=== PATIENT | female | born 1990 | race Two or more races ===

== ENCOUNTER 2020-04-26 17:37 | Inpatient (IN) | payer BC, OTHER ==
[~2020-04-26] VITALS: Ht 152.4 cm; Wt 70.8 kg
[2020-04-26] MEDS ORDERED: SODIUM CHLORIDE 0.9% 1,000 ML IV ONE (20:15)
[2020-04-26] MEDS ORDERED: cefTRIAXone 1GM/50ML D5W 50 ML IV ONE (20:15)
[2020-04-26 21:44] LABS: Albumin 3.9 g/dL (3.4-5.0); BUN/Creatinine Ratio 9.7; Calcium 8.9 mg/dL (8.5-10.1); Potassium 3.7 mmol/L (3.5-5.1)
[2020-04-26 21:48] LABS: Eosinophils # (auto) 0.1 10 ^3/uL (0-0.8); Eosinophils % (auto) 0.5 % (0.0-7.0); Lymphocytes # (auto) 2.2 10 ^3/uL (0.4-5.4); Monocytes # (auto) 0.6 10 ^3/uL (0-1.3); Neutrophils # (auto) 9.8 10 ^3/uL (1.6-8.6); White Blood Cell 12.7 10^3/uL (4.4-10.8)
[2020-04-26 21:49] LABS: Basophils # (auto) 0 10 ^3/uL (0-0.2); Basophils % (auto) 0.4 % (0.0-2.0); Hematocrit 41.5 % (36.0-46.0); Hemoglobin 13.7 g/dL (12.2-16.2); Mean Corpuscular Hemoglobin 28.4 pg (28.0-32.0); Mean Corpuscular Hgb Conc. 33.1 g/dL (32.0-36.0); Mean Corpuscular Volume 85.7 fL (80.0-100.0); Monocytes % (auto) 4.7 % (0.0-12.0); Neutrophils % (auto) 77.4 % (37.0-80.0); Platelet Count (auto) 455 10^3/uL (140-450); Red Blood Cells 4.84 10^6/uL (4.0-5.20); Red Cell Distribution Width 12.5 % (11.8-14.3)
[2020-04-26 21:56] LABS: CRP High Sensitivity 3.67 mg/dL (< 0.3)
[2020-04-26] MEDS ORDERED: KETOROLAC TROMETH 30 MG/ML 1ML VIAL IV ONE (22:00)
[2020-04-26 22:10] LABS: Bilirubin, Total 0.3 mg/dL (0.2-1.0); Total Protein 8.8 g/dL (6.4-8.2)
[2020-04-26] MEDS: D5W/SOD CHLO 0.9% 1,000 ML IV SCH (23:00)
[2020-04-26] MEDS ORDERED: CLINDAMYCIN 600MG IV 50 ML IV ONE (23:00)
[2020-04-26] MEDS ORDERED: ONDANSETRON HCL 4 MG/2 ML VIAL IV PRN (23:00)
[2020-04-27 03:37] VITALS: BP 104/67
--- NOTE | 2020-04-27 03:37 | NUR ---
MS admit from ER NICHO GILES admitted to tele/MS after SBAR received. Patient oriented to MICHAEL MAHER, RN primary RN, unit, room, bed, and unit policies regarding patient care and visiting hours. Patient weighed by bedscale and encouraged to call if they need something. All questions and concerns addressed, patient verbalized understanding.Patient states no pain at thid time. Will continue to monitor q1hr and PRN.
[2020-04-27] MEDS: CLINDAMYCIN 600MG IV 50 ML IV SCH ×3 (05:21→22:40)
--- NOTE | 2020-04-27 07:31 | NUR ---
Closing note Endorsed care to day shift RN. no sob or distress noted.
[2020-04-27 08:22] LABS: Basophils # (auto) 0.1 10 ^3/uL (0-0.2); Basophils % (auto) 0.5 % (0.0-2.0); Eosinophils # (auto) 0.1 10 ^3/uL (0-0.8); Eosinophils % (auto) 0.9 % (0.0-7.0); Hemoglobin 12.9 g/dL (12.2-16.2); Lymphocytes # (auto) 1.8 10 ^3/uL (0.4-5.4); Lymphocytes % (auto) 16.9 % (10.0-50.0); Mean Corpuscular Hemoglobin 29.5 pg (28.0-32.0); Mean Corpuscular Hgb Conc. 34.1 g/dL (32.0-36.0); Mean Corpuscular Volume 86.4 fL (80.0-100.0); Monocytes # (auto) 0.6 10 ^3/uL (0-1.3); Monocytes % (auto) 5.7 % (0.0-12.0); Neutrophils # (auto) 8.1 10 ^3/uL (1.6-8.6); Nucleated Red Blood Cells % 0.1 %; Platelet Count (auto) 411 10^3/uL (140-450); Red Blood Cells 4.39 10^6/uL (4.0-5.20); Red Cell Distribution Width 12.4 % (11.8-14.3); White Blood Cell 10.6 10^3/uL (4.4-10.8)
[2020-04-27] MEDS: cefTRIAXone 1GM/50ML D5W 50 ML IV SCH (08:41)
[2020-04-27] MEDS: MORPHINE SULFATE 4 MG/ML SYR/VIAL IV PRN ×3 (08:41→18:10)
[2020-04-27 08:43] LABS: Calcium 8.9 mg/dL (8.5-10.1)
[2020-04-27 09:00] VITALS: BP 100/61
[2020-04-27] MEDS ORDERED: HYDROcodone-ACET 5/325MG TAB PO PRN (10:30)
--- NOTE | 2020-04-27 10:30 | NUR ---
DR CUTLER AT BEDSIDE. NEW ORDERS RECEIVED.
[2020-04-27] MEDS ORDERED: ceFAZolin 1GM VL ONE (10:47)
[2020-04-27] MEDS ORDERED: LIDOCAINE W/ EPINEPHRINE 1% 20ML VIAL ONE (10:48)
[2020-04-27] MEDS ORDERED: BUPIVACAINE 0.25% INJ 50ML VIAL ONE (10:48)
[2020-04-27] MEDS ORDERED: KETAMINE HCL 10 ML ONE (11:00)
[2020-04-27] MEDS ORDERED: SODIUM CHLORIDE LOCK 10 ML ONE (11:00)
[2020-04-27] MEDS ORDERED: fentaNYL CITRATE 100 MCG/2 ML VL ONE (11:00)
[2020-04-27] MEDS ORDERED: MIDAZOLAM HCL 1MG/1ML-2 ML VIAL ONE (11:00)
[2020-04-27] MEDS ORDERED: ONDANSETRON HCL 4 MG/2 ML VIAL ONE (11:00)
[2020-04-27] MEDS ORDERED: PROPOFOL 10 MG/ML 20 ML IV ONE (11:00)
--- NOTE | 2020-04-27 11:21 | NUR ---
PATIENT DOWN TO OR. PATIENT SHOWS NO SIGNS OF DISTRESS AT THIS TIME.
[2020-04-27] MEDS: D5W/SOD CHLO 0.9% 1,000 ML IV SCH (13:27)
--- NOTE | 2020-04-27 20:30 | NUR ---
open note assumed care of pt upon entering room pt awake and alert. pt on room air no distress noted or expressed. pt denies pain. pt oriented to this nurse and updated on plan of care. pt has dressing to right chest, clean dry intact. pt reports she has urinated since being back from procedure. pt bowel sounds active. bed locked, low and 2x rails up. call light in reach, this nurse to round q1hr and prn. pt encouraged to call as needed.
[2020-04-28 01:08] VITALS: BP 85/51
[2020-04-28] MEDS: D5W/SOD CHLO 0.9% 1,000 ML IV SCH ×2 (01:40→15:00)
[2020-04-28 05:46] VITALS: BP 95/55
[2020-04-28] MEDS: CLINDAMYCIN 600MG IV 50 ML IV SCH ×3 (06:55→22:42)
--- NOTE | 2020-04-28 07:00 | NUR ---
OPENING SHIFT NOTE RECEIVED REPORT ON THE PATIENT. AWAKE LYING IN BED. PATIENT SHOWS NO SIGNS OF DISTRESS AT THIS TIME. DISCUSSED THE PLAN OF CARE WITH THE PATIENT. BED IN LOWEST POSITION, SIDE RAILS UP X2, AND THE CALL LIGHT IS WITHIN REACH.
[2020-04-28 07:48] LABS: Basophils # (auto) 0.1 10 ^3/uL (0-0.2); Basophils % (auto) 0.6 % (0.0-2.0); Eosinophils # (auto) 0.1 10 ^3/uL (0-0.8); Eosinophils % (auto) 0.9 % (0.0-7.0); Hematocrit 36.8 % (36.0-46.0); Lymphocytes # (auto) 1.9 10 ^3/uL (0.4-5.4); Lymphocytes % (auto) 18.4 % (10.0-50.0); Mean Corpuscular Hemoglobin 28.2 pg (28.0-32.0); Mean Corpuscular Hgb Conc. 32.7 g/dL (32.0-36.0); Mean Corpuscular Volume 86.1 fL (80.0-100.0); Monocytes # (auto) 0.5 10 ^3/uL (0-1.3); Monocytes % (auto) 5.2 % (0.0-12.0); Neutrophils # (auto) 7.5 10 ^3/uL (1.6-8.6); Neutrophils % (auto) 74.9 % (37.0-80.0); Platelet Count (auto) 392 10^3/uL (140-450); Red Blood Cells 4.27 10^6/uL (4.0-5.20); Red Cell Distribution Width 12.8 % (11.8-14.3); White Blood Cell 10.1 10^3/uL (4.4-10.8)
[2020-04-28 08:06] LABS: BUN/Creatinine Ratio 7.9; Calcium 8.4 mg/dL (8.5-10.1)
[2020-04-28] MEDS: cefTRIAXone 1GM/50ML D5W 50 ML IV SCH (08:48)
[2020-04-28 09:00] VITALS: BP 104/69
[2020-04-28] MEDS: MORPHINE SULFATE 4 MG/ML SYR/VIAL IV PRN ×2 (11:26→20:15)
--- NOTE | 2020-04-28 11:50 | NUR ---
WOUND CARE COMPLETED ON THE PATIENT. PATIENT TOLERATED WELL.
--- NOTE | 2020-04-28 11:52 | NUR ---
IV insertion IV access obtained, via clean sterile technique by inserting 20 gauge catheter at the right forearm after 1 attempt(s). IV secured properly. No trauma to site. Patient tolerated well. NOTE: []
--- NOTE | 2020-04-28 11:52 | NUR ---
IV removal IV DC'd with clean sterile technique, catheter fully intact. Pressure dressing applied to site. Patient tolerated well. NOTE: []
[2020-04-28 13:00] VITALS: BP 93/63
[2020-04-28 17:00] VITALS: BP 98/60
--- NOTE | 2020-04-28 19:40 | NUR ---
Opening Shift Note Assumed care of patient, awake and alert/oriented x4. No S/S of distress/SOB or pain. Insructed to call for assist PRN, will continue to monitor for changes. Antibiotic and pain meds discussed.
[2020-04-28 23:21] VITALS: BP 117/74
[2020-04-29 03:31] LABS: Urine Bacteria NONE SEEN /hpf (None Seen); Urine Blood Negative /uL (Negative); Urine Specific Gravity 1.014 (1.001-1.035); Urine WBC 1 /hpf (0 - 5)
[2020-04-29] MEDS: D5W/SOD CHLO 0.9% 1,000 ML IV SCH (05:00)
[2020-04-29] MEDS: CLINDAMYCIN 600MG IV 50 ML IV SCH (06:30)
[2020-04-29 09:00] VITALS: BP 109/72
[2020-04-29] MEDS: cefTRIAXone 1GM/50ML D5W 50 ML IV SCH (09:25)
[2020-04-29 13:00] VITALS: BP 101/60
[2020-04-29 13:05] VITALS: BP 109/72
== END 2020-04-29 14:40 | disposition home or self-care (01) | DRG 855 ==
LOC: ER 17:39 → OVERFLOW 22:49 → WEST WING 23:53
PROVIDERS: ADMIT Nurse Practitioner; ATTEND Internal Medicine
PROC: 0H9T0ZZ Drainage of Right Breast, Open Approach (ICD-10-PCS; principal; 2020-04-27 11:45)
DX: A41.9 Sepsis, unspecified organism (principal); E66.9 Obesity, unspecified; N61.1 Abscess of the breast and nipple; Z83.3 Family history of diabetes mellitus; D72.829 Elevated white blood cell count, unspecified; Z68.30 Body mass index [BMI] 30.0-30.9, adult
CPT/HCPCS: 36415; 76642; 80048; 80053; 81001; 83605; 84702; 85025; 85610; 85652; 86141; 87040; 87070; 87075; 87205; G0378; J0690; J0696; J1885; J2250; J2405; J2704; J3490; J7042

== ENCOUNTER → 2020-05-04 | Outpatient (CLI) | payer BC | END | disposition home or self-care (01) | LOC: LAB 12:22 | PROVIDERS: ATTEND Internal Medicine | DX: N63.0 Unspecified lump in unspecified breast (principal); Z86.32 Personal history of gestational diabetes | CPT/HCPCS: 36415; 83036 ==

== ENCOUNTER 2020-05-08 19:48 | Emergency (ER) | payer BC ==
[~2020-05-08] VITALS: Ht 152.4 cm; Wt 65.3 kg
[2020-05-08] MEDS ORDERED: MORPHINE SULF INJ 2 MG/ML SYRINGE 1ML IM ONE (21:00)
[2020-05-08] MEDS ORDERED: ONDANSETRON ODT 4 MG TAB PO ONE (21:00)
[2020-05-08 21:47] VITALS: BP 114/74
== END 2020-05-08 22:22 | disposition home or self-care (01) ==
LOC: ER 19:49
DX: N61.1 Abscess of the breast and nipple (principal)
CPT/HCPCS: 96372; 99283; J2270; Q0162

== ENCOUNTER 2020-05-11 11:07 | Inpatient (IN) | payer BC ==
[~2020-05-11] VITALS: Ht 152.4 cm; Wt 67.0 kg
[2020-05-11 14:18] LABS: Basophils # (auto) 0.1 10 ^3/uL (0-0.2); Basophils % (auto) 0.6 % (0.0-2.0); Eosinophils # (auto) 0 10 ^3/uL (0-0.8); Eosinophils % (auto) 0.4 % (0.0-7.0); Hematocrit 41.5 % (36.0-46.0); Hemoglobin 14.3 g/dL (12.2-16.2); Lymphocytes # (auto) 2.1 10 ^3/uL (0.4-5.4); Lymphocytes % (auto) 21.9 % (10.0-50.0); Mean Corpuscular Hemoglobin 29.3 pg (28.0-32.0); Mean Corpuscular Hgb Conc. 34.5 g/dL (32.0-36.0); Monocytes # (auto) 0.4 10 ^3/uL (0-1.3); Monocytes % (auto) 3.9 % (0.0-12.0); Neutrophils % (auto) 73.2 % (37.0-80.0); Platelet Count (auto) 369 10^3/uL (140-450); Red Blood Cells 4.88 10^6/uL (4.0-5.20); Red Cell Distribution Width 12.7 % (11.8-14.3); White Blood Cell 9.6 10^3/uL (4.4-10.8)
[2020-05-11 14:21] LABS: Urine WBC None Seen /hpf (0 - 5)
[2020-05-11] MEDS ORDERED: VANCOMYCIN 1GM/250ML 250 ML IV ONE (14:30)
[2020-05-11] MEDS ORDERED: PIPERACILLIN-TAZOB 3.375GM 100 ML IV ONE (14:30)
[2020-05-11 14:31] LABS: Urine Bacteria FEW /hpf (None Seen); Urine Blood Negative /uL (Negative); Urine Mucus FEW (None Seen)
[2020-05-11 14:44] LABS: Calcium 9.2 mg/dL (8.5-10.1); Potassium 3.8 mmol/L (3.5-5.1)
[2020-05-11 14:48] LABS: BUN/Creatinine Ratio 13.3; Bilirubin, Total 0.4 mg/dL (0.2-1.0); Total Protein 8.2 g/dL (6.4-8.2)
[2020-05-11] MEDS ORDERED: HYDROcodone-ACET 5/325MG TAB PO ONE (15:30)
[2020-05-11] MEDS ORDERED: diphenhdrAMINE HCL 50 MG/1 ML VL IV ONE ×2 (16:30)
[2020-05-11] MEDS ORDERED: SODIUM CHLORIDE 0.9% 1,000 ML IV ONE (16:30)
[2020-05-11] MEDS ORDERED: ACETAMINOPHEN 500 MG TAB PO PRN (17:45)
[2020-05-11] MEDS ORDERED: ONDANSETRON HCL 4 MG/2 ML VIAL IV PRN (17:45)
[2020-05-11] MEDS ORDERED: HYDROcodone-ACET 5/325MG TAB PO PRN (17:45)
[2020-05-11] MEDS ORDERED: IBUP800T24 PO (18:29)
[2020-05-11] MEDS ORDERED: LEVO-28 PO (18:36)
[2020-05-11] MEDS ORDERED: CLIN300C8 PO (18:36)
[2020-05-11] MEDS ORDERED: SULFAMETH-TRIMETH 80/16MG-ML 10 ML in D5W 5% 250 ML IV SCH (20:00)
[2020-05-11] MEDS: PIPERACILLIN-TAZOB 3.375GM 100 ML IV SCH (22:00)
--- NOTE | 2020-05-12 03:23 | NUR ---
MS admit from ER NICHO GILES admitted to [facility] unit after SBAR received. Patient oriented to Feliz rowland RN, unit, room 201, bed A, and unit policies regarding patient care and visiting hours. Patient VS taken, weighed by bedscale and encouraged to call if they need something. All questions and concerns addressed, patient verbalized understanding.
[2020-05-12 03:36] VITALS: BP 109/66
[2020-05-12 05:00] VITALS: BP 96/59
[2020-05-12] MEDS: PIPERACILLIN-TAZOB 3.375GM 100 ML IV SCH (05:53)
[2020-05-12 09:00] VITALS: BP 92/64
[2020-05-12] MEDS: SULFAMETH-TRIMETH 80/16MG-ML 10 ML in D5W 5% 250 ML IV SCH ×2 (09:00→21:10)
[2020-05-12] MEDS: FAMOTIDINE 20 MG TAB PO SCH (09:38)
[2020-05-12] MEDS ORDERED: LIDOCAINE 1% HCL (LOCAL ANESTH.) INJ 20ML MDV ONE (10:19)
[2020-05-12] MEDS ORDERED: ceFAZolin 1GM VL ONE (10:43)
[2020-05-12] MEDS ORDERED: ceFAZolin 1GM/50ML 50 ML IV ONE (10:44)
--- NOTE | 2020-05-12 10:44 | NUR ---
PT OFF FLOOR TO PRE OP VIA BED.
[2020-05-12] MEDS ORDERED: MIDAZOLAM HCL 1MG/1ML-2 ML VIAL ONE (11:05)
[2020-05-12] MEDS ORDERED: diphenhdrAMINE HCL 50 MG/1 ML VL ONE (11:06)
[2020-05-12] MEDS ORDERED: METOCLOPRAMIDE HCL 5MG/ml INJ 2ml VIAL ONE (11:06)
[2020-05-12] MEDS ORDERED: GLYCOPYRROLATE 0.2 MG/ML 1ML VIAL ONE ×2 (11:06→11:10)
[2020-05-12] MEDS ORDERED: KETAMINE HCL 10 ML ONE (11:07)
[2020-05-12] MEDS ORDERED: LIDOCAINE 2% (LOCAL ANESTH.) PF 5ml SDV ONE (11:08)
[2020-05-12] MEDS ORDERED: PROPOFOL 10 MG/ML 20 ML IV ONE (11:08)
[2020-05-12] MEDS ORDERED: HYDROmorphone HCL 2 MG/ML VL IV PRN ×2 (11:15)
[2020-05-12] MEDS ORDERED: NALOXONE HCL 0.4 MG/ML VIAL IV PRN (11:15)
[2020-05-12] MEDS ORDERED: ONDANSETRON HCL 4 MG/2 ML VIAL IV PRN (11:15)
[2020-05-12] MEDS ORDERED: HYDROmorphone HCL 2 MG/ML VL IV ONE (11:58)
[2020-05-12 12:25] LABS: INR 1.03 (0.9-1.15); Partial Thromboplastin Time 25.7 sec (23.0-31.2)
--- NOTE | 2020-05-12 12:48 | NUR ---
RETURNED TO FLOOR WITHOUT INCIDENT. PT DROWSY, EASILY AROUSABLE. ORIENTED X 4. DRESSING TO RIGHT BREAST INTACT. CONTINUING TO MONITOR.
[2020-05-12 13:00] VITALS: BP 95/70
[2020-05-12] MEDS: MORPHINE SULF INJ 2 MG/ML SYRINGE 1ML IV PRN ×2 (13:54)
--- NOTE | 2020-05-12 15:52 | NUR ---
Nutrition Assessment/Consult Notes Please refer to link for full assessment notes. Est Energy needs: 9998-3655 kcals (20-23 kcal/kgBW) Est Protein needs: 53-66 gms/day (0.8-1.0 gm/kgBW) Will continue to monitor and reassess prn. Addendum: 05/12/20 at [address] Amended: Links added.
--- NOTE | 2020-05-12 16:51 | NUR ---
DRESSING TO RIGHT BREAST INTACT, PRADIP DRAIN IN PLACE. OLD DRAINAGE ON DRESSING. PT TOLERATING LIQUIDS AND CRACKERS. NO NAUSEA. TEMP 100.0 ORALLY, CONTINUING TO MONITOR.
[2020-05-12 16:59] VITALS: BP 98/54
--- NOTE | 2020-05-12 19:40 | NUR ---
Opening Shift Note Assumed care of patient, awake and alert. Patient laying in bed watching TV. No S/S of distress/SOB or pain. Dressing to right breast is dry and intact. Safety measures maintained by keeping the bed locked in lowest position, 2 side rails up, personal items and call light within reach. Instructed on POC and to call for assist PRN, will continue to monitor for changes Q1hr and PRN.
[2020-05-12 21:00] VITALS: BP 98/53
[2020-05-13 05:00] VITALS: BP 105/65
[2020-05-13 05:34] LABS: Basophils # (auto) 0 10 ^3/uL (0-0.2); Basophils % (auto) 0.4 % (0.0-2.0); Eosinophils # (auto) 0.1 10 ^3/uL (0-0.8); Eosinophils % (auto) 0.6 % (0.0-7.0); Hematocrit 38.2 % (36.0-46.0); Hemoglobin 12.8 g/dL (12.2-16.2); Lymphocytes # (auto) 2.3 10 ^3/uL (0.4-5.4); Mean Corpuscular Hemoglobin 28.5 pg (28.0-32.0); Mean Corpuscular Hgb Conc. 33.5 g/dL (32.0-36.0); Mean Corpuscular Volume 84.9 fL (80.0-100.0); Monocytes # (auto) 0.6 10 ^3/uL (0-1.3); Monocytes % (auto) 5.9 % (0.0-12.0); Neutrophils # (auto) 7.1 10 ^3/uL (1.6-8.6); Neutrophils % (auto) 70.1 % (37.0-80.0); Nucleated Red Blood Cells % 0.1 %; Platelet Count (auto) 313 10^3/uL (140-450); White Blood Cell 10.2 10^3/uL (4.4-10.8)
[2020-05-13 05:50] LABS: Calcium 8.7 mg/dL (8.5-10.1); Potassium 4.1 mmol/L (3.5-5.1)
[2020-05-13 08:00] VITALS: BP 112/58
[2020-05-13 09:00] VITALS: BP 112/58
--- NOTE | 2020-05-13 09:30 | NUR ---
patient denies pain, small discharge to breast and remains in bed with no further needs.
[2020-05-13] MEDS: FAMOTIDINE 20 MG TAB PO SCH (09:58)
[2020-05-13 13:01] VITALS: BP 113/58
[2020-05-13] MEDS ORDERED: SULF400T11 PO (14:03)
[2020-05-13] MEDS ORDERED: TRAM-297 PO (14:04)
[2020-05-13 14:10] VITALS: BP 113/58
--- NOTE | 2020-05-13 16:14 | NUR ---
Patient discharge instructions given and given information on new medications, after cares.Dressing change to vinnie done. Minimal drainage noted. Educated patient on after care and dressing changes to site. Dressing included washing with wound cleanser, pat dry and apply gauze to area with tape and patient verbalized understanding.
== END 2020-05-13 16:00 | disposition home or self-care (01) | DRG 585 ==
LOC: ER 11:07 → OVERFLOW 11:08 → CENTRAL 05-12 02:32
PROVIDERS: ADMIT Nurse Practitioner Acute Care; ATTEND Internal Medicine
PROC: 0H9T0ZX Drainage of Right Breast, Open Approach, Diagnostic (ICD-10-PCS; principal; 2020-05-12 10:57)
DX: N61.1 Abscess of the breast and nipple (principal); N63.10 Unspecified lump in the right breast, unspecified quadrant; Z20.828 Contact with and (suspected) exposure to other viral communicable diseases; Z83.3 Family history of diabetes mellitus
CPT/HCPCS: 36415; 76642; 80048; 80053; 81001; 81025; 85025; 85610; 85730; 87070; 87075; 87081; 87205; 87426; 96361; 96365; 96375; G0378; J0690; J2001; J2250; J2405; J2543; J2704; J3490; J7060

== ENCOUNTER → 2020-05-25 | Outpatient (CLI) | payer BC ==
[~2020-05-25] MED LIST: SULF400T11 PO; TRAM-297 PO
== END | disposition home or self-care (01) ==
LOC: LAB 14:19
PROVIDERS: ATTEND Internal Medicine
DX: N61.1 Abscess of the breast and nipple (principal)
CPT/HCPCS: 87205

== ENCOUNTER 2020-06-01 16:10 | Emergency (ER) | payer BC ==
[~2020-06-01] VITALS: Ht 152.4 cm; Wt 77.1 kg
[2020-06-01 16:13] VITALS: BP 128/77
[2020-06-01] MEDS ORDERED: ACETAMINOPHEN 325 MG TAB PO ONE (17:15)
[2020-06-01] MEDS ORDERED: VANCOMYCIN 1GM/250ML 250 ML IV ONE (17:15)
[2020-06-01] MEDS ORDERED: SODIUM CHLORIDE 0.9% 1,000 ML IV ONE (18:00)
[2020-06-01 19:07] LABS: Basophils # (auto) 0 10 ^3/uL (0-0.2); Basophils % (auto) 0.4 % (0.0-2.0); Eosinophils # (auto) 0.1 10 ^3/uL (0-0.8); Eosinophils % (auto) 1.4 % (0.0-7.0); Hematocrit 39.3 % (36.0-46.0); Hemoglobin 13.7 g/dL (12.2-16.2); Lymphocytes # (auto) 2.1 10 ^3/uL (0.4-5.4); Lymphocytes % (auto) 22.8 % (10.0-50.0); Mean Corpuscular Hemoglobin 29.4 pg (28.0-32.0); Monocytes # (auto) 0.4 10 ^3/uL (0-1.3); Monocytes % (auto) 4.1 % (0.0-12.0); Neutrophils # (auto) 6.6 10 ^3/uL (1.6-8.6); Neutrophils % (auto) 71.3 % (37.0-80.0); Nucleated Red Blood Cells % 2.1 %; Red Blood Cells 4.67 10^6/uL (4.0-5.20); Red Cell Distribution Width 12.7 % (11.8-14.3); White Blood Cell 9.3 10^3/uL (4.4-10.8)
[2020-06-01 19:22] LABS: Albumin 4.1 g/dL (3.4-5.0); Calcium 9.6 mg/dL (8.5-10.1); Potassium 3.9 mmol/L (3.5-5.1)
[2020-06-01 19:25] LABS: BUN/Creatinine Ratio 15.7; Bilirubin, Total 0.2 mg/dL (0.2-1.0); Total Protein 8.2 g/dL (6.4-8.2)
== END 2020-06-01 21:51 | disposition left against medical advice (07) ==
LOC: ER 16:10
DX: N61.1 Abscess of the breast and nipple (principal); Z79.899 Other long term (current) drug therapy
CPT/HCPCS: 36415; 76642; 80053; 83605; 85025; 96365; 99284; J3370

== ENCOUNTER 2025-04-27 10:09 | Emergency (ER) | payer BC, MEDICAID ==
[~2025-04-27] VITALS: Ht 152.4 cm; Wt 66.0 kg
--- NOTE | 2025-04-27 10:51 | ED.PDOC ---
SPRINKLER FITTER APPRENTICE HPI Comments 34 year old female presents to the ED with a chief complaint of pelvic pain onset 5 days. Patient states she has been experiencing LT pelvic pain for the past 5 days, described as a pressure sensation. She is currently 16 weeks , last OBGYN appointment was 1 week ago. She is also experiencing yellow vaginal discharge. Spouse states patient was placed on pelvic rest, recently had sexual intercourse. P:2. Denies fever, chills, nausea, vomiting, diarrhea, headache, dizziness, dysuria, hematuria, vaginal bleeding. No other symptoms or modifying factors present at this time. Chief Complaint: Pelvic Pain Time Seen by MD: 10:30 Reviewed Notes: Medications, Allergies Allergies: Coded Allergies: NO KNOWN ALLERGIES (Unverified , 04/26/20) Home Meds Reported Medications Tramadol Hcl (Ultram) 50 Mg Tab, 50 MG PO QID PRN for PAIN SCALE 7 THRU 10, % 05/13/20 Sulfamethoxazole-Trimethoprim (Bactrim) 1 Tab Tab, 1 TAB PO BID for 7 Days, MG 05/13/20 Information Source: Patient, Spouse Mode of Arrival: Ambulatory Timing: Days Prehospital treatment: None Severity: Moderate Vaginal Discharge: Yellow Vaginal Lesions: None Vaginal Mass: None Sexual Activity: Sexually Active, Control: None History of: Current Symptoms of Possible : Missed Period Associated Signs and Symptoms: Cramping Past Medical History PAST MEDICAL HISTORY: Denies Surgical History: Denies all surgeries ANIMAL TECH History: No Pertinent ANIMAL TECH History Family History Family History: Unknown Social History Smoker: Non-Smoker Alcohol: Denies ETOH Use Drugs: Denies Drug Use Lives In: Home Constitutional: denies: chills, diaphoresis, fatigue, fever, malaise, sweats, weakness, others EENTM: denies: blurred vision, double vision, ear bleeding, ear discharge, ear drainage, ear pain, ear ringing, eye pain, eye redness, hearing loss, mouth pain, mouth swelling, nasal discharge, nose bleeding, nose congestion, nose pain, photophobia, tearing, throat pain, throat swelling, voice changes, others Respiratory: denies: cough, hemoptysis, orthopnea, SOB at rest, shortness of breath, SOB with excertion, stridor, wheezing, others Cardiovascular: denies: chest pain, dizzy spells, diaphoresis, Dyspnea on exertion, edema, irregular heart beat, left arm pain, lightheadedness, palpitations, PND, syncope, others Gastrointestinal: denies: abdomen distended, abdominal pain, blood streaked bowels, constipated, diarrhea, dysphagia, difficulty swallowing, hematemesis, melena, nausea, poor appetite, poor fluid intake, rectal bleeding, rectal pain, vomiting, others Genitourinary: reports: pain (LT pelvic), , vagina discharge (yellow); denies: abnormal vagina bleeding, burning, dyspareunia, dysuria, flank pain, frequency, hematuria, incontinence, urgency, others Neurological: denies: dizziness, fainting, headache, left sided numbness, left sided weakness, numbness, paresthesia, pre-existing deficit, right sided numbness, right sided weakness, seizure, speech problems, tingling, tremors, weakness, others Musculoskeletal: denies: back pain, gout, joint pain, joint swelling, muscle pain, muscle stiffness, neck pain, others Integumetry: denies: bruises, change in color, change in hair/nails, dryness, laceration, lesions, lumps, rash, wounds, others Allergic/Immunocompromised: denies: Difficulty Healing, Frequent Infections, Hives, Itching, others Hematologic/Lymphatic: denies: anemia, blood clots, easy bleeding, easy bruising, swollen glands, others Endocrine: denies: excessive hunger, excessive sweating, excessive thirst, excessive urination, flushing, intolerance to cold, intolerance to heat, unexplained weight gain, unexplained weight loss, others Psychiatric: denies: anxiety, bipolar disorder, depression, hopeless, panic disorder, schizophrenia, sleepless, suicidal, others All Other Systems: Reviewed and Negative Physical Exam General Appearance: Moderate Distress, Normal HEENT: Normal ENT Inspection, Pharynx Normal, TMs Normal Neck: Full Range of Motion, Non-Tender, Normal, Normal Inspection Respiratory: Chest Non-Tender, Lungs Clear, No Accessory Muscle Use, No Respiratory Distress, Normal Breath Sounds Cardiovascular: No Edema, No JVD, No Murmur, No Gallop, Normal Peripheral Pulses, Regular Rate/Rhythm Breast Exam: Deferred Gastrointestinal: No Organomegaly, Non Tender, No Pulsatile Mass, Normal Bowel Sounds, Soft Genitalia: Deferred Pelvic: Deferred Rectal: Deferred Extremities: No calf tenderness, Normal capillary refill, Normal inspection, Normal range of motion, Non-tender, No pedal edema Musculoskeletal : Apperance: Normal Neurologic: Alert, life science technical officer II-XII nml as Tested, No Motor Deficits, Normal Affect, Normal Mood, No Sensory Deficits Cerebellar Function: Normal Reflexes: Normal Skin: Dry, Normal Color, Warm Peripheral Pulses: 3+ Radial (R), 3+ Radial (L) Lymphatic: No Adenopathy Was a procedure done? Was a procedure done?: No Differential Diagnosis (ANIMAL TECH) Vaginal Bleeding: - Complete, - Incomplete, - In evitable, - Missed, - Threatened X-Ray, Labs, Meds, VS Vital Signs Date Time Temp Pulse Resp B/P (MAP) Pulse Ox O2 Delivery O2 Flow Rate FiO2 04/27/25 10:11 98.2 99 16 119/53 83 98.2 Lab Test 04/27/25 11:00 04/27/25 10:40 Range/Units Beta HCG, Quantitative 01120.8 H 1.5-4.2 mIU/mL Urine Color Yellow Yellow Urine Clarity Turbid H Clear Urine pH 7.0 5.0-9.0 Urine Specific [place] 1.027 1.001-1.035 Urine Protein Trace H Negative Urine Ketones 1+ H Negative Urine Blood Negative Negative /uL Urine Nitrite Negative Negative Urine Bilirubin Negative Negative Urine Urobilinogen Normal Negative mg/dL Urine Leukocyte Esterase Negative Negative /uL Urine RBC 1 0 - 4 /hpf Urine Microscopic WBC 1 0-5 /HPF Urine Squamous Epithelial Cells Mod <5 /hpf Urine Bacteria None seen None Seen /hpf Urine Mucus Few None Seen Urine Glucose Normal Normal mg/dL Patient alert. States that she has been having cramping. She is . Vitals stable. Answering questions. No sign of distress. Ambulating. Explained to the patient. Was told to follow up with her OBGYN. Was told to follow up with her primary care physician. Was told to come back if there is any problem. [facility] [id number] [place] [id number] Ph: [phone] DIAGNOSTIC IMAGING Diagnostic Imaging Report : [id number] Signed PATIENT: NICHO GILES ACCT: [id number] UNIT: [id number] : 1990 LOC: ER ROOM / BED: / AGE / SEX: 34 / F ADM STATUS: REG ER SERVICE 1055 ORDERING PHYSICIAN: JAMISON GARG MD PROCEDURE(s): OBUS - OB ULTRASOUND COMP GTR 14 WKS REASON: cramping ORDER NUMBER(s): [id number], ACCESSION NUMBER(s): [id number] LIMITED OB ULTRASOUND > 14 WKS: HISTORY: cramping TECHNIQUE: Multiple real-time grayscale images of the gravid uterus with duplex Doppler color flow and M-mode spectral analysis. TRANSDUCER: Transabdominal COMPARISON: None FINDINGS: IUP single live fetus at 15 weeks and 5 days based on composite averages of the BPD, head circumference, abdominal circumference and femur length Estimated weight 131 grams heart rate 158 beats per minute JASWANT is subjectively within normal limits, deepest pocket measures 6.2 cm Cervix is closed and measures 3.1 cm Transverse right Presentation Grade 1 Posterior Placenta without previa or abruption. Limited assessment of anatomy secondary to early gestational age. bladder grossly appears within normal limits. IMPRESSION: IUP single live fetus at 15 weeks and 5 days AUA corresponding to an RACHAEL of 10/14/2025 Probable transient posterior wall uterine contraction noted during the time of examination. ATED BY: VINI TAYLOR MD DICTATED DATE/TIME: 04/27/25 1150 SIGNED BY: VINI TAYLOR MD SIGNED DATE/TIME: 04/27/25 1150 CC: Time of 1ST Reevaluation: 11:00 Reevaluation 1ST: Unchanged Patient Education/Counseling: Diagnosis, Treatment, Prognosis Family Education/Counseling: Diagnosis, Treatment, Prognosis Departure 1 Departure Time of Disposition: 11:44 Impression: Primary Impression: Normal Qualified Codes: Z34.90 - Encounter for supervision of normal , unspecified, unspecified trimester Disposition: 01 HOME / SELF CARE / HOMELESS Condition: Good Discharged With: Self Critical Care Note Critical Care Time?: No Stability Stability form required: No Heart Score Heart Score: Heart Score Response (Comments) Value History N/A 0 EKG N/A 0 Age N/A 0 Risk Factors N/A 0 Troponin N/A 0 Total 0 I personally scribed for JAMISON GARG MD ([email or web address]) on 04/27/25 at 10:51. Electronically submitted by Christie Odom ([email or web address]). I personally scribed for JAMISON GARG MD ([email or web address]) on 04/27/25 at 10:51. Electronically submitted by Christie Odom ([email or web address]). I personally scribed for JAMISON GARG MD ([email or web address]) on 04/27/25 at 12:29. Electronically submitted by Christie Odom ([email or web address]). JAMISON GARG MD Apr 27, 2025 10:51
--- NOTE | 2025-04-27 11:53 | DVH ---
LIMITED OB ULTRASOUND > 14 WKS: HISTORY: cramping TECHNIQUE: Multiple real-time grayscale images of the gravid uterus with duplex Doppler color flow and M-mode spectral analysis. TRANSDUCER: Transabdominal COMPARISON: None FINDINGS: IUP single live fetus at 15 weeks and 5 days based on composite averages of the BPD, head circumference, abdominal circumference and femur length Estimated weight 131 grams heart rate 158 beats per minute JASWANT is subjectively within normal limits, deepest pocket measures 6.2 cm Cervix is closed and measures 3.1 cm Transverse right Presentation Grade 1 Posterior Placenta without previa or abruption. Limited assessment of anatomy secondary to early gestational age. bladder grossly appears within normal limits. IMPRESSION: IUP single live fetus at 15 weeks and 5 days AUA corresponding to an RACHAEL of 10/14/2025 Probable transient posterior wall uterine contraction noted during the time of examination.
[2025-04-27 11:59] LABS: Urine Protein, UAD TRACE (Negative)
[2025-04-27 15:30] VITALS: BP 110/70; PULSE 82; RESP 15; TEMP 98; O2SAT 99
== END 2025-04-27 15:30 | disposition home or self-care (01) ==
LOC: ER 10:09
DX: Z34.90 Encounter for supervision of normal pregnancy, unspecified, unspecified trimester (principal); Z3A.15 15 weeks gestation of pregnancy
CPT/HCPCS: 36415; 76805; 81001; 84702